=== PATIENT | male | born 1960 | race Caucasian/White ===

== ENCOUNTER 2017-06-02 19:17 | Emergency (ER) | payer MEDICAID ==
[~2017-06-02] VITALS: Ht 157.5 cm; Wt 115.0 kg
[~2017-06-02 19:17] MED LIST: ALLO100T30 PO; DOCU-131 PO; DOXY100T PO; FLUT1DIS3 INH; FURO20TA3 PO; HYDR-3237 PO; INDO50CA PO; Lorazepam PO; MULT-750 PO; OMEP-110 PO; RIVA15TA PO; RIVA20TA PO; TEMA15CA6 PO; ZIPR20CA2 PO
[2017-06-02] MEDS ORDERED: methylPREDNISolone SOD SUCC 125 MG/2 ML IVP ONE (20:00)
[2017-06-02] MEDS ORDERED: ALBUTEROL/IPRATROPIUM 2.5MG/0.5MG, 3 ML NPPB ONE (20:00)
[2017-06-02] MEDS ORDERED: SODIUM CHLORIDE FLUSH 10ML SYR IVF ONE (20:00)
[2017-06-02 20:10] LABS: HEMATOCRIT 43.7 % (39.2-51.8)
[2017-06-02] MEDS ORDERED: methylPREDNISolone SOD SUCC 125 MG/2 ML ONE (20:15)
[2017-06-02] MEDS ORDERED: ALBUTEROL/IPRATROPIUM 2.5MG/0.5MG, 3 ML ONE (20:20)
[2017-06-02 20:21] LABS: BLOOD UREA NITROGEN 11 mg/dL (7-18)
[2017-06-02] MEDS ORDERED: OMNIPAQUE 350 MG/ML, 100ML BOTTLE ONE (20:57)
[2017-06-02] MEDS ORDERED: IBUPROFEN 200 MG TABLET ONE (21:23)
[2017-06-02] MEDS ORDERED: TAMSULOSIN 0.4 MG CAP.ER.24H ONE (21:33)
[2017-06-02 21:42] VITALS: BP 142/94
[2017-06-02] MEDS ORDERED: TAMSULOSIN 0.4 MG CAP.ER.24H PO ONE (22:00)
== END 2017-06-02 22:27 | disposition home or self-care (01) ==
LOC: ED 22:15
DX: N40.1 Benign prostatic hyperplasia with lower urinary tract symptoms (principal); J98.01 Acute bronchospasm; F10.20 Alcohol dependence, uncomplicated; F20.9 Schizophrenia, unspecified; F32.9 Major depressive disorder, single episode, unspecified; K21.9 Gastro-esophageal reflux disease without esophagitis; M10.9 Gout, unspecified; Z86.711 Personal history of pulmonary embolism; Z99.81 Dependence on supplemental oxygen
CPT/HCPCS: 36415; 51702; 71275; 80048; 81003; 82040; 85025; 85610; 85730; 94640; 96374; 99285; J2930; Q9967; J7620

== ENCOUNTER 2017-06-06 12:29 | Inpatient (IN) | payer MEDICAID ==
[~2017-06-06] VITALS: Ht 185.4 cm; Wt 114.1 kg
[2017-06-06] MEDS ORDERED: SODIUM CHLORIDE 0.9% 1,000 ML IV ONE (13:01)
[2017-06-06] MEDS ORDERED: methylPREDNISolone SOD SUCC 125 MG/2 ML ONE (13:12)
[2017-06-06] MEDS ORDERED: methylPREDNISolone SOD SUCC 125 MG/2 ML IVP ONE (13:30)
[2017-06-06] MEDS ORDERED: AZITHROMYCIN 500 MG in SODIUM CHLORIDE 0.9% 250 ML IVPB ONE (13:30)
[2017-06-06] MEDS ORDERED: CEFTRIAXONE PMX 1GM/50ML 50 ML IVPB ONE (13:30)
[2017-06-06] MEDS ORDERED: SODIUM CHLORIDE FLUSH 10ML SYR IVF ONE (13:30)
[2017-06-06 13:43] LABS: HEMATOCRIT 49.6 % (39.2-51.8); HEMOGLOBIN 16.7 g/dL (13.7-18.0); WHITE BLOOD COUNT 6.2 x10^3/uL (3.4-10)
[2017-06-06 13:54] LABS: ASPARTATE AMINO TRANSFERASE 28 U/L (15-37); BLOOD UREA NITROGEN 13 mg/dL (7-18)
[2017-06-06 14:03] LABS: IS PT STATUS REG ER OR PRE ER? YES
[2017-06-06] MEDS ORDERED: CEFTRIAXONE PMX 1GM/50ML 50 ML ONE (14:18)
[2017-06-06] MEDS ORDERED: ONDANSETRON 2MG/ML, 2ML ONE (14:18)
[2017-06-06] MEDS ORDERED: LORazepam 2 MG/ML, 1ML ONE (14:25)
[2017-06-06] MEDS ORDERED: LORazepam 2 MG/ML, 1ML IVPush ONE (14:30)
[2017-06-06] MEDS ORDERED: ONDANSETRON 2MG/ML, 2ML IVPush ONE (14:30)
[2017-06-06 15:31] VITALS: BP 119/76
[2017-06-06] MEDS: CEFTRIAXONE PMX 1GM/50ML 50 ML IV SCH (15:56)
[2017-06-06] MEDS ORDERED: ONDANSETRON 2MG/ML, 2ML IVPush PRN (16:00)
[2017-06-06] MEDS ORDERED: ACETAMINOPHEN 325 MG TABLET PO PRN (16:00)
[2017-06-06] MEDS ORDERED: DOCUSATE 100 MG CAPSULE PO PRN (16:00)
[2017-06-06] MEDS ORDERED: NITROGLYCERIN 0.4 MG BOTTLE (25 TABS) SL PRN (16:00)
[2017-06-06] MEDS ORDERED: ONDANSETRON ODT 4 MG PO PRN (16:00)
[2017-06-06] MEDS: BENZONATATE 100 MG CAPSULE PO SCH ×2 (17:55→20:12)
[2017-06-06] MEDS: GUAIFENESIN 200 MG TABLET PO SCH ×2 (17:55→20:12)
[2017-06-06] MEDS: methylPREDNISolone SOD SUCC 125 MG/2 ML IVPush SCH (17:55)
[2017-06-06 18:59] LABS: RAPID INFLUENZA A Negative (Negative); RAPID INFLUENZA B Negative (Negative)
[2017-06-06 19:41] VITALS: BP 113/72
[2017-06-06] MEDS ORDERED: ALBUTEROL/IPRATROPIUM 2.5MG/0.5MG, 3 ML NPPB SCH (20:00)
[2017-06-06] MEDS: DOXYCYCLINE 100 MG in DEXTROSE 5% 250 ML IV SCH (20:13)
[2017-06-06 20:29] LABS: IS PT STATUS REG ER OR PRE ER? NO
[2017-06-07] MEDS: methylPREDNISolone SOD SUCC 125 MG/2 ML IVPush SCH ×4 (00:52→23:54)
[2017-06-07 02:00] VITALS: BP 110/73
[2017-06-07] MEDS: GUAIFENESIN 200 MG TABLET PO SCH ×4 (05:29→20:13)
[2017-06-07] MEDS: ASPIRIN 81 MG TABLET EC PO SCH (05:29)
[2017-06-07] MEDS: RIVAROXABAN 20 MG TABLET PO SCH (05:29)
[2017-06-07 05:55] LABS: BLOOD UREA NITROGEN 13 mg/dL (7-18)
[2017-06-07 05:56] LABS: HEMATOCRIT 42.3 % (39.2-51.8); HEMOGLOBIN 14.6 g/dL (13.7-18.0); WHITE BLOOD COUNT 8.5 x10^3/uL (3.4-10)
[2017-06-07] MEDS ORDERED: ASPIRIN 81 MG TABLET EC PO SCH (06:00)
[2017-06-07 06:30] VITALS: BP 116/63
[2017-06-07] MEDS: BENZONATATE 100 MG CAPSULE PO SCH ×3 (08:57→20:13)
[2017-06-07] MEDS: DOXYCYCLINE 100 MG in DEXTROSE 5% 250 ML IV SCH ×2 (08:57→20:14)
[2017-06-07] MEDS: ALLOPURINOL 300 MG TABLET PO SCH (08:57)
[2017-06-07 11:58] VITALS: BP 141/76
[2017-06-07 14:39] VITALS: BP 120/73
[2017-06-07] MEDS: CEFTRIAXONE PMX 1GM/50ML 50 ML IV SCH (15:31)
[2017-06-07] MEDS: THIAMINE 100MG TABLET PO SCH (17:48)
[2017-06-07 20:00] VITALS: BP 141/76
[2017-06-07] MEDS ORDERED: ACETAMINOPHEN 325 MG TABLET PO PRN (20:00)
[2017-06-07] MEDS ORDERED: DOCUSATE 100 MG CAPSULE PO PRN (20:00)
[2017-06-07] MEDS ORDERED: ONDANSETRON ODT 4 MG PO PRN (20:00)
[2017-06-07] MEDS ORDERED: ONDANSETRON 2MG/ML, 2ML IVPush PRN (20:00)
[2017-06-07] MEDS ORDERED: ALBUTEROL/IPRATROPIUM 2.5MG/0.5MG, 3 ML NPPB PRN (20:00)
[2017-06-08 04:37] VITALS: BP 112/63
[2017-06-08] MEDS: GUAIFENESIN 200 MG TABLET PO SCH ×4 (05:25→20:19)
[2017-06-08] MEDS: ASPIRIN 81 MG TABLET EC PO SCH (05:25)
[2017-06-08] MEDS: RIVAROXABAN 20 MG TABLET PO SCH (05:25)
[2017-06-08 05:58] LABS: HEMATOCRIT 42.6 % (39.2-51.8); HEMOGLOBIN 14.8 g/dL (13.7-18.0); WHITE BLOOD COUNT 11.7 x10^3/uL (3.4-10)
[2017-06-08 06:10] LABS: ASPARTATE AMINO TRANSFERASE 16 U/L (15-37); BLOOD UREA NITROGEN 16 mg/dL (7-18)
[2017-06-08 08:19] VITALS: BP 120/72
[2017-06-08] MEDS ORDERED: FOLIC ACID 1 MG TABLET PO SCH (09:00)
[2017-06-08] MEDS: methylPREDNISolone SOD SUCC 125 MG/2 ML IVPush SCH ×2 (09:32→16:22)
[2017-06-08] MEDS: THIAMINE 100MG TABLET PO SCH (09:32)
[2017-06-08] MEDS: FOLIC ACID 1 MG TABLET PO SCH (09:32)
[2017-06-08] MEDS: DOXYCYCLINE 100 MG in DEXTROSE 5% 250 ML IV SCH ×2 (09:32→20:19)
[2017-06-08] MEDS: BENZONATATE 100 MG CAPSULE PO SCH ×3 (09:32→20:20)
[2017-06-08] MEDS: ALLOPURINOL 300 MG TABLET PO SCH (09:32)
[2017-06-08 14:17] VITALS: BP 125/86
[2017-06-08] MEDS ORDERED: ALBUTEROL/IPRATROPIUM 2.5MG/0.5MG, 3 ML NPPB PRN (15:00)
[2017-06-08] MEDS: CEFTRIAXONE PMX 1GM/50ML 50 ML IV SCH (16:22)
[2017-06-08] MEDS ORDERED: ALBUTEROL/IPRATROPIUM 2.5MG/0.5MG, 3 ML ONE (19:39)
[2017-06-08 19:41] VITALS: BP 132/76
[2017-06-08] MEDS: ALBUTEROL/IPRATROPIUM 2.5MG/0.5MG, 3 ML NPPB SCH (19:48)
[2017-06-09] MEDS: methylPREDNISolone SOD SUCC 125 MG/2 ML IVPush SCH ×2 (00:05→08:59)
[2017-06-09 02:59] VITALS: BP 128/72
[2017-06-09] MEDS: GUAIFENESIN 200 MG TABLET PO SCH ×3 (05:02→16:16)
[2017-06-09] MEDS: RIVAROXABAN 20 MG TABLET PO SCH (05:02)
[2017-06-09] MEDS: ASPIRIN 81 MG TABLET EC PO SCH (05:02)
[2017-06-09 06:20] VITALS: BP 126/77
[2017-06-09 08:56] LABS: HEMATOCRIT 43.2 % (39.2-51.8); HEMOGLOBIN 14.7 g/dL (13.7-18.0); WHITE BLOOD COUNT 11.6 x10^3/uL (3.4-10)
[2017-06-09] MEDS: ALLOPURINOL 300 MG TABLET PO SCH (08:58)
[2017-06-09] MEDS: FOLIC ACID 1 MG TABLET PO SCH (08:58)
[2017-06-09] MEDS: THIAMINE 100MG TABLET PO SCH (08:58)
[2017-06-09] MEDS: BENZONATATE 100 MG CAPSULE PO SCH ×2 (08:58→16:16)
[2017-06-09] MEDS: ALBUTEROL/IPRATROPIUM 2.5MG/0.5MG, 3 ML NPPB SCH (09:00)
[2017-06-09] MEDS ORDERED: CEFDINIR 300 MG CAPSULE PO SCH (09:00)
[2017-06-09] MEDS ORDERED: DOXYCYCLINE 100MG TABLET PO SCH (09:00)
[2017-06-09 09:08] LABS: BLOOD UREA NITROGEN 14 mg/dL (7-18)
[2017-06-09 13:18] VITALS: BP 126/63
[2017-06-09] MEDS ORDERED: BENZ-17 PO (15:23)
[2017-06-09] MEDS ORDERED: PRED20TA PO (15:23)
[2017-06-09] MEDS ORDERED: DOXY100T PO (15:23)
== END 2017-06-09 18:45 | disposition home or self-care (01) | DRG 189 ==
LOC: ED 14:10 → EDIP 14:11 → ED 14:34 → 4NOR 15:13 → 4WST 17:38
PROVIDERS: ADMIT Internal Medicine; ATTEND Internal Medicine
DX: J96.20 Acute and chronic respiratory failure, unspecified whether with hypoxia or hypercapnia (principal); E87.2 Acidosis; I50.32 Chronic diastolic (congestive) heart failure; R45.851 Suicidal ideations; J44.1 Chronic obstructive pulmonary disease with (acute) exacerbation; J98.11 Atelectasis; K76.0 Fatty (change of) liver, not elsewhere classified; G47.33 Obstructive sleep apnea (adult) (pediatric); K21.9 Gastro-esophageal reflux disease without esophagitis; F32.9 Major depressive disorder, single episode, unspecified; F41.9 Anxiety disorder, unspecified; Z66 Do not resuscitate; M1A.9XX0 Chronic gout, unspecified, without tophus (tophi); F20.9 Schizophrenia, unspecified; F17.200 Nicotine dependence, unspecified, uncomplicated; Z91.14 Patient's other noncompliance with medication regimen; Z99.81 Dependence on supplemental oxygen; Z86.711 Personal history of pulmonary embolism; Z86.718 Personal history of other venous thrombosis and embolism; Z79.01 Long term (current) use of anticoagulants
CPT/HCPCS: 36415; 71010; 80048; 80053; 81003; 82550; 83605; 83735; 83880; 84145; 84443; 84484; 85025; 85610; 87040; 87400; 93005; 93306; 94640; 96365; 96367; 96375; J0456; J0696; J2405; J7060; J7620; J2930; J7030; J7050

== ENCOUNTER 2017-07-29 18:27 | Observation (INO) | payer MEDICAID ==
[~2017-07-29] VITALS: Ht 157.5 cm; Wt 107.0 kg
[~2017-07-29 18:27] MED LIST changes: +BENZ-17 PO; +PRED20TA PO
[2017-07-29 18:57] LABS: BASOPHILS # (AUTO) 0.04 x10^3/uL (0-0.1); BASOPHILS % (AUTO) 1 % (0-1); EOSINOPHILS # (AUTO) 0.09 x10^3/uL (0-0.4); EOSINOPHILS % (AUTO) 1 % (1-7); LYMPHOCYTES # (AUTO) 1.93 x10^3/uL (1-3.4); LYMPHOCYTES % (AUTO) 25 % (22-44); MD NO; MEAN CORPUSCULAR HEMOGLOBIN 30.7 pg (27.5-34.5); MEAN CORPUSCULAR HGB CONC 33.8 g/dL (33.2-36.2); MEAN CORPUSCULAR VOLUME 90.8 fL (81-97); MEAN PLATELET VOLUME 7.8 fL (7.4-10.4); MONOCYTES # (AUTO) 0.59 x10^3/uL (0.2-0.8); MONOCYTES % (AUTO) 8 % (2-9); NEUTROPHILS # (AUTO) 5.09 x10^3/uL (1.8-6.8); NEUTROPHILS % (AUTO) 66 % (42-75); PLATELET COUNT 253 x10^3/uL (130-400); RED CELL DISTRIBUTION WIDTH 14.4 % (9.4-14.8)
[2017-07-29 19:08] LABS: ALANINE AMINOTRANSFERASE 25 U/L (12-78); ALBUMIN 3.8 g/dL (3.4-5.0); ANION GAP 9 mmol/L (5-15); CALCIUM 9.1 mg/dL (8.5-10.1); CHLORIDE 109 mmol/L (98-107); CREATININE 0.97 mg/dL (0.7-1.3)
[2017-07-29 19:09] LABS: SALICYLATE LEVEL < 1.7 mg/dL (2.8-20.0)
[2017-07-29 19:11] LABS: ALKALINE PHOSPHATASE 92 U/L (45-117); BILIRUBIN,TOTAL 1.7 mg/dL (0.2-1.0); TOTAL PROTEIN 7.6 g/dL (6.4-8.2)
[2017-07-29 19:13] LABS: ACETAMINOPHEN < 2 mcg/mL (10-30)
[2017-07-29] MEDS ORDERED: ZIPR40CA2 PO (19:22)
[2017-07-29 19:31] LABS: CULTURE INDICATED? YES; MICROSCOPIC INDICATED
[2017-07-29 20:25] LABS: AMPHETAMINE SCREEN, URINE Negative (Negative); BARBITURATE SCREEN, URINE Negative (Negative); BENZODIAZEPINE SCREEN, URINE Negative (Negative); CANNABINOID SCREEN, URINE Negative (Negative); COCAINE SCREEN, URINE Negative (Negative); METHADONE SCREEN, URINE Negative (Negative); OPIATE SCREEN, URINE Negative (Negative)
[2017-07-29] MEDS ORDERED: ZIPRASIDONE 20MG CAPSULE ONE (21:53)
[2017-07-29] MEDS: ZIPRASIDONE 40MG CAPSULE PO SCH (21:57)
[2017-07-30] MEDS: RIVAROXABAN 20 MG TABLET PO SCH (09:00)
[2017-07-30] MEDS: BENZTROPINE 1 MG TABLET PO PRN ×2 (09:00→20:29)
[2017-07-30] MEDS: ZIPRASIDONE 40MG CAPSULE PO SCH ×2 (09:00→20:28)
[2017-07-30] MEDS ORDERED: INDOMETHACIN 50 MG CAPSULE ONE ×2 (10:47→20:30)
[2017-07-30] MEDS ORDERED: ACETAMINOPHEN 325 MG TABLET ONE ×2 (10:49→20:29)
[2017-07-30] MEDS ORDERED: ZIPRASIDONE 20MG CAPSULE ONE (20:16)
[2017-07-30] MEDS: INDOMETHACIN 50 MG CAPSULE PO PRN (20:29)
[2017-07-30] MEDS: ACETAMINOPHEN 325 MG TABLET PO PRN (20:29)
[2017-07-31] MEDS: INDOMETHACIN 50 MG CAPSULE PO PRN (09:00)
[2017-07-31] MEDS: ZIPRASIDONE 40MG CAPSULE PO SCH ×2 (09:00→20:54)
[2017-07-31] MEDS: RIVAROXABAN 20 MG TABLET PO SCH (09:00)
[2017-07-31] MEDS ORDERED: ACETAMINOPHEN 325 MG TABLET ONE (09:40)
[2017-07-31] MEDS: ACETAMINOPHEN 325 MG TABLET PO PRN (09:45)
[2017-07-31 19:18] VITALS: BP 135/94
[2017-08-01] MEDS: INDOMETHACIN 50 MG CAPSULE PO PRN ×2 (08:12→21:02)
[2017-08-01] MEDS: RIVAROXABAN 20 MG TABLET PO SCH (08:13)
[2017-08-01] MEDS: ZIPRASIDONE 40MG CAPSULE PO SCH ×2 (08:13→21:00)
[2017-08-01 08:15] VITALS: BP 139/99
[2017-08-01 20:10] VITALS: BP 135/87
[2017-08-02] MEDS: ZIPRASIDONE 40MG CAPSULE PO SCH ×2 (08:35→20:38)
[2017-08-02] MEDS: RIVAROXABAN 20 MG TABLET PO SCH (08:35)
[2017-08-02] MEDS: INDOMETHACIN 50 MG CAPSULE PO PRN ×2 (08:35→20:38)
[2017-08-02 08:42] VITALS: BP 138/88
[2017-08-02] MEDS: DIPHENHYDRAMINE 25 MG CAPSULE PO PRN ×2 (15:32→20:38)
[2017-08-02] MEDS ORDERED: ZIPRASIDONE 40MG CAPSULE ONE (19:10)
[2017-08-02 20:01] VITALS: BP 128/87
[2017-08-03 08:10] VITALS: BP 143/92
[2017-08-03] MEDS: ZIPRASIDONE 40MG CAPSULE PO SCH ×2 (08:27→20:00)
[2017-08-03] MEDS: RIVAROXABAN 20 MG TABLET PO SCH (08:27)
[2017-08-03] MEDS: DIPHENHYDRAMINE 25 MG CAPSULE PO PRN ×2 (10:12→15:13)
[2017-08-03 19:52] VITALS: BP 133/91
[2017-08-03] MEDS: INDOMETHACIN 50 MG CAPSULE PO PRN (20:00)
[2017-08-04 07:51] VITALS: BP 133/87
[2017-08-04] MEDS: ZIPRASIDONE 40MG CAPSULE PO SCH ×2 (09:13→20:23)
[2017-08-04] MEDS: RIVAROXABAN 20 MG TABLET PO SCH (09:35)
[2017-08-04 19:27] VITALS: BP 155/79
[2017-08-04] MEDS: DIPHENHYDRAMINE 25 MG CAPSULE PO PRN (22:04)
[2017-08-05] MEDS: ZIPRASIDONE 40MG CAPSULE PO SCH ×2 (08:04→21:24)
[2017-08-05] MEDS: RIVAROXABAN 20 MG TABLET PO SCH (08:04)
[2017-08-05 08:08] VITALS: BP 130/90
[2017-08-05 20:00] VITALS: BP 121/82
[2017-08-05] MEDS: DIPHENHYDRAMINE 25 MG CAPSULE PO PRN (21:24)
[2017-08-06 08:12] VITALS: BP 129/87
[2017-08-06] MEDS: RIVAROXABAN 20 MG TABLET PO SCH (08:31)
[2017-08-06] MEDS: INDOMETHACIN 50 MG CAPSULE PO PRN (08:31)
[2017-08-06] MEDS: ZIPRASIDONE 40MG CAPSULE PO SCH ×2 (08:31→20:39)
[2017-08-06] MEDS: DIPHENHYDRAMINE 25 MG CAPSULE PO PRN ×2 (08:31→20:39)
[2017-08-06 19:38] VITALS: BP 124/86
[2017-08-07] MEDS: ZIPRASIDONE 40MG CAPSULE PO SCH (08:08)
[2017-08-07] MEDS: INDOMETHACIN 50 MG CAPSULE PO PRN (08:08)
[2017-08-07] MEDS: RIVAROXABAN 20 MG TABLET PO SCH (08:08)
[2017-08-07] MEDS: ACETAMINOPHEN 325 MG TABLET PO PRN (08:08)
[2017-08-07] MEDS: DIPHENHYDRAMINE 25 MG CAPSULE PO PRN (08:08)
[2017-08-07 08:20] VITALS: BP 131/75
== END 2017-08-07 18:22 | disposition home or self-care (01) ==
LOC: ED 18:51 → EDIP 07-30 01:43 → 2N 07-31 17:19
PROVIDERS: ADMIT Internal Medicine; ATTEND Family Medicine
DX: R45.851 Suicidal ideations (principal); F10.10 Alcohol abuse, uncomplicated; M10.9 Gout, unspecified; R44.0 Auditory hallucinations; F15.90 Other stimulant use, unspecified, uncomplicated; F25.9 Schizoaffective disorder, unspecified; K21.9 Gastro-esophageal reflux disease without esophagitis; F31.9 Bipolar disorder, unspecified; Z99.81 Dependence on supplemental oxygen; Z86.718 Personal history of other venous thrombosis and embolism
CPT/HCPCS: 36415; 80053; 80307; 80329; 81001; 85025; 87086; 99285; G0378; Q0163; G0480

== ENCOUNTER 2017-09-15 08:03 | Emergency (ER) | payer MEDICAID ==
[~2017-09-15] VITALS: Ht 160 cm; Wt 109.1 kg
[~2017-09-15 08:03] MED LIST changes: +ZIPR40CA2 PO
[2017-09-15 09:46] LABS: BASOPHILS # (AUTO) 0.03 x10^3/uL (0-0.1); BASOPHILS % (AUTO) 1 % (0-1); EOSINOPHILS # (AUTO) 0.37 x10^3/uL (0-0.4); EOSINOPHILS % (AUTO) 6 % (1-7); LYMPHOCYTES # (AUTO) 1.77 x10^3/uL (1-3.4); LYMPHOCYTES % (AUTO) 28 % (22-44); MD NO; MEAN CORPUSCULAR HEMOGLOBIN 31.2 pg (27.5-34.5); MEAN CORPUSCULAR HGB CONC 34.5 g/dL (33.2-36.2); MEAN CORPUSCULAR VOLUME 90.6 fL (81-97); MEAN PLATELET VOLUME 8.3 fL (7.4-10.4); MONOCYTES # (AUTO) 0.87 x10^3/uL (0.2-0.8); MONOCYTES % (AUTO) 14 % (2-9); NEUTROPHILS # (AUTO) 3.32 x10^3/uL (1.8-6.8); NEUTROPHILS % (AUTO) 52 % (42-75); PLATELET COUNT 214 x10^3/uL (130-400); RED BLOOD COUNT 5.07 x10^6/uL (4.38-5.82); RED CELL DISTRIBUTION WIDTH 14.1 % (9.4-14.8)
[2017-09-15 09:49] LABS: INTERNATIONAL NORMALIZED RATIO 1.04 (0.93-1.1); PROTHROMBIN TIME 10.8 Seconds (9.6-11.5)
[2017-09-15 09:50] LABS: ALBUMIN 3.7 g/dL (3.4-5.0); ANION GAP 6 mmol/L (5-15); CALCIUM 8.7 mg/dL (8.5-10.1); CHLORIDE 109 mmol/L (98-107)
[2017-09-15 09:56] LABS: CREATININE 0.82 mg/dL (0.7-1.3); TROPONIN I < 0.015 ng/mL (0.000-0.045)
[2017-09-15] MEDS ORDERED: OMNIPAQUE 350 MG/ML, 100ML BOTTLE ONE (11:09)
[2017-09-15 11:48] VITALS: BP 106/73
== END 2017-09-15 12:03 | disposition home or self-care (01) ==
LOC: ED 09:43
DX: R60.0 Localized edema (principal); M79.605 Pain in left leg; M79.89 Other specified soft tissue disorders; J44.9 Chronic obstructive pulmonary disease, unspecified; I10 Essential (primary) hypertension; K21.9 Gastro-esophageal reflux disease without esophagitis
CPT/HCPCS: 36415; 71046; 71275; 80048; 82040; 83880; 84484; 85025; 85610; 85730; 93005; 93970; 99285; Q9967

== ENCOUNTER 2017-11-07 12:53 | Emergency (ER) | payer MEDICAID ==
[~2017-11-07] VITALS: Ht 157.5 cm; Wt 107.4 kg
[2017-11-07 15:17] LABS: BASOPHILS # (AUTO) 0.09 x10^3/uL (0-0.1); BASOPHILS % (AUTO) 1 % (0-1); EOSINOPHILS # (AUTO) 0.34 x10^3/uL (0-0.4); EOSINOPHILS % (AUTO) 6 % (1-7); LYMPHOCYTES % (AUTO) 31 % (22-44); MD NO; MEAN CORPUSCULAR HGB CONC 34.2 g/dL (33.2-36.2); MEAN CORPUSCULAR VOLUME 87.7 fL (81-97); MEAN PLATELET VOLUME 7.9 fL (7.4-10.4); MONOCYTES # (AUTO) 0.62 x10^3/uL (0.2-0.8); MONOCYTES % (AUTO) 10 % (2-9); NEUTROPHILS # (AUTO) 3.12 x10^3/uL (1.8-6.8); NEUTROPHILS % (AUTO) 52 % (42-75); PLATELET COUNT 220 x10^3/uL (130-400); RED BLOOD COUNT 4.97 x10^6/uL (4.38-5.82); RED CELL DISTRIBUTION WIDTH 13.8 % (9.4-14.8)
[2017-11-07 15:30] LABS: ALANINE AMINOTRANSFERASE 20 U/L (12-78); ALBUMIN 3.5 g/dL (3.4-5.0); ANION GAP 6 mmol/L (5-15); CALCIUM 8.8 mg/dL (8.5-10.1); CHLORIDE 110 mmol/L (98-107); CREATININE 0.95 mg/dL (0.7-1.3)
[2017-11-07] MEDS ORDERED: KETOROLAC 30 MG/1 ML IM ONE (15:30)
[2017-11-07 15:34] LABS: ALKALINE PHOSPHATASE 72 U/L (45-117); BILIRUBIN,TOTAL 0.6 mg/dL (0.2-1.0); TOTAL PROTEIN 6.8 g/dL (6.4-8.2)
[2017-11-07] MEDS ORDERED: KETOROLAC 30 MG/1 ML ONE (15:35)
[2017-11-07] MEDS ORDERED: FURO-93 PO (15:40)
[2017-11-07] MEDS ORDERED: GABA100C PO (15:40)
[2017-11-07 16:36] VITALS: BP 112/73
== END 2017-11-07 16:51 | disposition home or self-care (01) ==
LOC: ED 16:30
DX: L03.115 Cellulitis of right lower limb (principal); J44.9 Chronic obstructive pulmonary disease, unspecified; K21.9 Gastro-esophageal reflux disease without esophagitis; I10 Essential (primary) hypertension; F10.20 Alcohol dependence, uncomplicated; Z86.718 Personal history of other venous thrombosis and embolism; Z86.711 Personal history of pulmonary embolism; Z59.0 Homelessness
CPT/HCPCS: 36415; 71045; 80053; 83880; 85025; 93005; 93971; 96372; 99285; J1885

== ENCOUNTER 2017-12-01 19:16 | Emergency (ER) | payer MEDICAID ==
[~2017-12-01] VITALS: Ht 160 cm; Wt 106.1 kg
[~2017-12-01 19:16] MED LIST changes: +FURO-93 PO; +GABA100C PO
[2017-12-01] MEDS ORDERED: INDO50CA PO (19:44)
[2017-12-01] MEDS ORDERED: HYDROcodone/APAP 5/325 TABLET ONE (19:45)
[2017-12-01] MEDS ORDERED: HYDROcodone/APAP 5/325 TABLET PO ONE (20:00)
[2017-12-01 20:02] LABS: BASOPHILS # (AUTO) 0.06 x10^3/uL (0-0.1); BASOPHILS % (AUTO) 1 % (0-1); EOSINOPHILS # (AUTO) 0.33 x10^3/uL (0-0.4); EOSINOPHILS % (AUTO) 4 % (1-7); LYMPHOCYTES # (AUTO) 2.23 x10^3/uL (1-3.4); LYMPHOCYTES % (AUTO) 30 % (22-44); MD NO; MEAN CORPUSCULAR HEMOGLOBIN 30.3 pg (27.5-34.5); MEAN CORPUSCULAR HGB CONC 34.4 g/dL (33.2-36.2); MEAN CORPUSCULAR VOLUME 88.1 fL (81-97); MEAN PLATELET VOLUME 8.4 fL (7.4-10.4); MONOCYTES # (AUTO) 0.78 x10^3/uL (0.2-0.8); MONOCYTES % (AUTO) 10 % (2-9); NEUTROPHILS # (AUTO) 4.13 x10^3/uL (1.8-6.8); NEUTROPHILS % (AUTO) 55 % (42-75); PLATELET COUNT 209 x10^3/uL (130-400); RED BLOOD COUNT 5.15 x10^6/uL (4.38-5.82); RED CELL DISTRIBUTION WIDTH 14.1 % (9.4-14.8)
[2017-12-01 20:12] LABS: ALBUMIN 3.9 g/dL (3.4-5.0); ANION GAP 10 mmol/L (5-15); CALCIUM 9.1 mg/dL (8.5-10.1); CHLORIDE 110 mmol/L (98-107); CREATININE 1.04 mg/dL (0.7-1.3)
[2017-12-01 20:15] LABS: TROPONIN I < 0.015 ng/mL (0.000-0.045)
[2017-12-01 21:47] VITALS: BP 117/72
== END 2017-12-01 22:01 | disposition home or self-care (01) ==
LOC: ED 21:38
DX: R60.0 Localized edema (principal); I10 Essential (primary) hypertension; J44.9 Chronic obstructive pulmonary disease, unspecified; N40.0 Benign prostatic hyperplasia without lower urinary tract symptoms; F31.9 Bipolar disorder, unspecified; F20.9 Schizophrenia, unspecified; K21.9 Gastro-esophageal reflux disease without esophagitis; Z86.718 Personal history of other venous thrombosis and embolism; Z99.81 Dependence on supplemental oxygen; Z86.711 Personal history of pulmonary embolism; Z79.01 Long term (current) use of anticoagulants
CPT/HCPCS: 36415; 71045; 80048; 82040; 84484; 85025; 93005; 93970; 99285

== ENCOUNTER 2017-12-12 17:12 | Emergency (ER) | payer MEDICAID ==
[~2017-12-12] VITALS: Ht 157.5 cm; Wt 104.0 kg
[2017-12-12 21:54] VITALS: BP 116/71
== END 2017-12-12 22:37 | disposition home or self-care (01) ==
LOC: ED 20:40
DX: F10.120 Alcohol abuse with intoxication, uncomplicated (principal); J44.9 Chronic obstructive pulmonary disease, unspecified; K21.9 Gastro-esophageal reflux disease without esophagitis; Z86.718 Personal history of other venous thrombosis and embolism; I10 Essential (primary) hypertension
CPT/HCPCS: 99283

== ENCOUNTER 2018-01-18 16:08 | Emergency (ER) | payer MEDICAID ==
[~2018-01-18] VITALS: Ht 165.1 cm; Wt 101.0 kg
[2018-01-18 16:17] VITALS: BP 121/83
[2018-01-18] MEDS ORDERED: NAPROXEN 500 MG TABLET PO ONE (17:00)
[2018-01-18] MEDS ORDERED: NAPROXEN 500 MG TABLET ONE (17:14)
[2018-01-18] MEDS ORDERED: ACETAMINOPHEN 500 MG TABLET PO ONE (19:00)
[2018-01-18] MEDS ORDERED: ACETAMINOPHEN 500 MG TABLET ONE (19:16)
== END 2018-01-18 19:27 | disposition home or self-care (01) ==
LOC: ED 17:49
DX: M79.662 Pain in left lower leg (principal); M79.652 Pain in left thigh; R60.9 Edema, unspecified; I10 Essential (primary) hypertension; J44.9 Chronic obstructive pulmonary disease, unspecified; M10.9 Gout, unspecified
CPT/HCPCS: 99284

== ENCOUNTER 2018-04-15 14:10 | Emergency (ER) | payer MEDICAID ==
[~2018-04-15] VITALS: Ht 160 cm; Wt 103.0 kg
[~2018-04-15 14:10] MED LIST changes: -INDO50CA PO; +INDO50CA5 PO
[2018-04-15] MEDS ORDERED: KETOROLAC 30 MG/1 ML ONE (14:38)
[2018-04-15] MEDS ORDERED: KETOROLAC 30 MG/1 ML IM ONE (15:00)
[2018-04-15 15:12] VITALS: BP 128/72
== END 2018-04-15 15:14 | disposition home or self-care (01) ==
LOC: ED 14:51
DX: M10.032 Idiopathic gout, left wrist (principal); I10 Essential (primary) hypertension; J44.9 Chronic obstructive pulmonary disease, unspecified; F31.9 Bipolar disorder, unspecified; K21.9 Gastro-esophageal reflux disease without esophagitis; Z86.718 Personal history of other venous thrombosis and embolism
CPT/HCPCS: 29125; 96372; 99283; J1885

== ENCOUNTER 2018-04-16 00:19 | Emergency (ER) | payer MEDICAID ==
[~2018-04-16] VITALS: Ht 165.1 cm; Wt 100.0 kg
[2018-04-16 00:23] VITALS: BP 138/80
[2018-04-16] MEDS ORDERED: ACETAMINOPHEN 325 MG TABLET ONE (00:38)
[2018-04-16] MEDS ORDERED: HYDROcodone/APAP 5/325 TABLET ONE (00:38)
[2018-04-16 00:47] LABS: BASOPHILS # (AUTO) 0.03 x10^3/uL (0-0.1); BASOPHILS % (AUTO) 0 % (0-1); EOSINOPHILS # (AUTO) 0.19 x10^3/uL (0-0.4); EOSINOPHILS % (AUTO) 3 % (1-7); LYMPHOCYTES # (AUTO) 1.67 x10^3/uL (1-3.4); LYMPHOCYTES % (AUTO) 22 % (22-44); MD NO; MEAN CORPUSCULAR HGB CONC 34.3 g/dL (33.2-36.2); MEAN CORPUSCULAR VOLUME 90.4 fL (81-97); MEAN PLATELET VOLUME 7.8 fL (7.4-10.4); MONOCYTES # (AUTO) 0.88 x10^3/uL (0.2-0.8); MONOCYTES % (AUTO) 11 % (2-9); NEUTROPHILS # (AUTO) 4.96 x10^3/uL (1.8-6.8); NEUTROPHILS % (AUTO) 64 % (42-75); PLATELET COUNT 198 x10^3/uL (130-400); RED BLOOD COUNT 4.62 x10^6/uL (4.38-5.82); RED CELL DISTRIBUTION WIDTH 13.8 % (9.4-14.8)
[2018-04-16 00:58] LABS: ANION GAP 8 mmol/L (5-15); CALCIUM 8.8 mg/dL (8.5-10.1); CHLORIDE 110 mmol/L (98-107); CREATININE 0.88 mg/dL (0.7-1.3)
[2018-04-16 00:59] LABS: ALBUMIN 3.6 g/dL (3.4-5.0)
[2018-04-16] MEDS ORDERED: ACETAMINOPHEN 325 MG TABLET PO ONE (01:00)
[2018-04-16] MEDS ORDERED: HYDROcodone/APAP 5/325 TABLET PO ONE (01:00)
[2018-04-16 01:14] LABS: MICROSCOPIC NOT IND
[2018-04-16 01:34] LABS: CULTURE INDICATED? NO
== END 2018-04-16 02:12 | disposition home or self-care (01) ==
LOC: ED 00:42
DX: B34.9 Viral infection, unspecified (principal); M79.10 Myalgia, unspecified site; I10 Essential (primary) hypertension; J44.9 Chronic obstructive pulmonary disease, unspecified; F31.9 Bipolar disorder, unspecified; F20.9 Schizophrenia, unspecified; Z86.718 Personal history of other venous thrombosis and embolism; K21.9 Gastro-esophageal reflux disease without esophagitis
CPT/HCPCS: 36415; 71045; 80048; 81003; 82040; 83605; 84145; 85025; 99285

== ENCOUNTER 2018-04-28 04:55 | Emergency (ER) | payer MEDICAID ==
[~2018-04-28] VITALS: Ht 162.6 cm; Wt 104.1 kg
[2018-04-28 04:56] VITALS: BP 146/82
[2018-04-28] MEDS ORDERED: KETOROLAC 30 MG/1 ML ONE (05:43)
[2018-04-28] MEDS ORDERED: IBUPROFEN 200 MG TABLET ONE (05:58)
[2018-04-28] MEDS ORDERED: KETOROLAC 30 MG/1 ML IM ONE (06:00)
[2018-04-28] MEDS ORDERED: IBUPROFEN 200 MG TABLET PO ONE (06:00)
== END 2018-04-28 06:49 | disposition home or self-care (01) ==
LOC: ED 06:23
DX: M1A.05 Idiopathic chronic gout, hip (principal); M1A.0510 Idiopathic chronic gout, right hip, without tophus (tophi); M1A.0620 Idiopathic chronic gout, left knee, without tophus (tophi); M1A.0610 Idiopathic chronic gout, right knee, without tophus (tophi); M1A.0720 Idiopathic chronic gout, left ankle and foot, without tophus (tophi); M1A.0710 Idiopathic chronic gout, right ankle and foot, without tophus (tophi); M1A.0320 Idiopathic chronic gout, left wrist, without tophus (tophi); I10 Essential (primary) hypertension; J44.9 Chronic obstructive pulmonary disease, unspecified; F32.9 Major depressive disorder, single episode, unspecified; Z86.718 Personal history of other venous thrombosis and embolism
CPT/HCPCS: 82962; 99283

== ENCOUNTER 2018-04-30 07:45 | Emergency (ER) | payer MEDICAID ==
[~2018-04-30] VITALS: Ht 175.3 cm; Wt 104.0 kg
[2018-04-30 08:15] VITALS: BP 127/72
[2018-04-30] MEDS ORDERED: KETOROLAC 30 MG/1 ML IM ONE (08:30)
[2018-04-30] MEDS ORDERED: PLEASE ENTER HEIGHT AND WEIGHT MC SCH (08:30)
[2018-04-30] MEDS ORDERED: KETOROLAC 30 MG/1 ML ONE (08:31)
== END 2018-04-30 10:20 | disposition home or self-care (01) ==
LOC: ED 09:10
DX: S63.512A Sprain of carpal joint of left wrist, initial encounter (principal); M10.062 Idiopathic gout, left knee
CPT/HCPCS: 29260; 73110; 93970; 96372; 99284; J1885

== ENCOUNTER 2018-05-17 07:48 | Emergency (ER) | payer MEDICAID ==
[~2018-05-17] VITALS: Ht 165.1 cm; Wt 102.4 kg
[2018-05-17 07:56] VITALS: BP 116/80
[2018-05-17] MEDS ORDERED: INDO50CA5 PO (08:02)
[2018-05-17] MEDS ORDERED: KETOROLAC 30 MG/1 ML ONE (08:15)
[2018-05-17] MEDS ORDERED: KETOROLAC 30 MG/1 ML IM ONE (08:30)
== END 2018-05-17 09:03 | disposition home or self-care (01) ==
LOC: ED 09:00
DX: M19.071 Primary osteoarthritis, right ankle and foot (principal); M10.9 Gout, unspecified; M19.032 Primary osteoarthritis, left wrist; K21.9 Gastro-esophageal reflux disease without esophagitis; J44.9 Chronic obstructive pulmonary disease, unspecified; I10 Essential (primary) hypertension
CPT/HCPCS: 96372; 99283; J1885

== ENCOUNTER 2018-06-07 05:09 | Emergency (ER) | payer MEDICAID ==
[~2018-06-07] VITALS: Ht 157.5 cm; Wt 102.4 kg
[2018-06-07 05:12] VITALS: BP 139/79
[2018-06-07] MEDS ORDERED: KETOROLAC 30 MG/1 ML ONE (05:56)
[2018-06-07] MEDS ORDERED: COLCHICINE 0.6 MG TABLET PO ONE (06:00)
[2018-06-07] MEDS ORDERED: KETOROLAC 30 MG/1 ML IM ONE (06:00)
[2018-06-07] MEDS ORDERED: DIPH,PERTUSS(ACELL),TET VAC/PF 0.5 ML IM-VACC ONE ×2 (06:23→06:30)
[2018-06-07] MEDS ORDERED: COLCHICINE 0.6 MG TABLET PO SCH (07:00)
== END 2018-06-07 06:52 | disposition home or self-care (01) ==
LOC: ED 05:18
DX: M10.071 Idiopathic gout, right ankle and foot (principal); I10 Essential (primary) hypertension; J44.9 Chronic obstructive pulmonary disease, unspecified; F17.200 Nicotine dependence, unspecified, uncomplicated
CPT/HCPCS: 90471; 90715; 96372; 99283; J1885

== ENCOUNTER 2018-08-08 14:31 | Emergency (ER) | payer MEDICAID ==
[~2018-08-08] VITALS: Ht 152.4 cm; Wt 109.1 kg
[2018-08-08 14:32] VITALS: BP 120/85
== END 2018-08-08 15:20 ==
LOC: ED 15:10
DX: L03.113 Cellulitis of right upper limb (principal); I10 Essential (primary) hypertension; J44.9 Chronic obstructive pulmonary disease, unspecified; F31.9 Bipolar disorder, unspecified; K21.9 Gastro-esophageal reflux disease without esophagitis; F20.9 Schizophrenia, unspecified; M10.9 Gout, unspecified; Z86.718 Personal history of other venous thrombosis and embolism
CPT/HCPCS: 99283

== ENCOUNTER 2018-09-02 06:52 | Emergency (ER) | payer MEDICAID ==
[~2018-09-02] VITALS: Ht 165.1 cm; Wt 107.4 kg
[2018-09-02] MEDS ORDERED: KETOROLAC 30 MG/1 ML IM ONE (08:00)
[2018-09-02] MEDS ORDERED: COLCHICINE 0.6 MG TABLET PO SCH (08:00)
[2018-09-02] MEDS ORDERED: KETOROLAC 30 MG/1 ML ONE (08:08)
--- NOTE | 2018-09-02 08:11 | NUR ---
TASK RN: MED REQUEST SENT TO PHARMACY
[2018-09-02] MEDS ORDERED: COLCHICINE 0.6 MG TABLET PO ONE (08:30)
[2018-09-02 08:38] VITALS: BP 120/76
--- NOTE | 2018-09-02 08:46 | NUR ---
Patient/Caregiver given discharge instructions and they have confirmed that they understand the instructions. Patient ambulatory with steady gait. PT LEFT WITH ALL PERSONAL BELONGINGS.
== END 2018-09-02 08:48 | disposition home or self-care (01) ==
LOC: ED 07:12
DX: M13.161 Monoarthritis, not elsewhere classified, right knee (principal); K21.9 Gastro-esophageal reflux disease without esophagitis; J44.9 Chronic obstructive pulmonary disease, unspecified; I10 Essential (primary) hypertension; Z86.718 Personal history of other venous thrombosis and embolism; F31.9 Bipolar disorder, unspecified
CPT/HCPCS: 96372; 99283; J1885

== ENCOUNTER 2018-09-16 07:21 | Emergency (ER) | payer MEDICAID ==
[~2018-09-16] VITALS: Ht 165.1 cm; Wt 107.2 kg
[2018-09-16] MEDS ORDERED: HYDROcodone/APAP 5/325 TABLET ONE (07:57)
--- NOTE | 2018-09-16 07:59 | NUR ---
PT TAKEN TO CT IN STABLE CONDITION.
[2018-09-16] MEDS ORDERED: HYDROcodone/APAP 5/325 TABLET PO ONE (08:00)
[2018-09-16] MEDS ORDERED: KETOROLAC 30 MG/1 ML ONE (08:41)
[2018-09-16] MEDS ORDERED: KETOROLAC 30 MG/1 ML IM ONE (09:00)
--- NOTE | 2018-09-16 09:02 | NUR ---
PT CHART REVIEWED AND PLACED FOR RECHECK.
[2018-09-16 09:07] VITALS: BP 116/75
--- NOTE | 2018-09-16 09:07 | NUR ---
PT CHART REVIEWED AND PLACED FOR RECHECK.
== END 2018-09-16 10:09 | disposition home or self-care (01) ==
LOC: ED 08:18
DX: S06.0X0A Concussion without loss of consciousness, initial encounter (principal); S00.83XA Contusion of other part of head, initial encounter; S50.12XA Contusion of left forearm, initial encounter; S50.11XA Contusion of right forearm, initial encounter; F20.9 Schizophrenia, unspecified; I10 Essential (primary) hypertension; Z76.0 Encounter for issue of repeat prescription; Z72.9 Problem related to lifestyle, unspecified; Y04.8XXA Assault by other bodily force, initial encounter; Y93.89 Activity, other specified; Y92.89 Other specified places as the place of occurrence of the external cause; Y99.8 Other external cause status; Z59.0 Homelessness
CPT/HCPCS: 70450; 70486; 71101; 96372; 99284; J1885

== ENCOUNTER 2018-09-16 15:27 | Emergency (ER) | payer MEDICAID ==
[~2018-09-16] VITALS: Ht 167.6 cm; Wt 111.0 kg
[2018-09-16 15:46] VITALS: BP 105/74
--- NOTE | 2018-09-16 18:52 | NUR ---
REPORT RECEIVED FROM Elsa RICCI, [facility]
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
--- NOTE | 2018-09-16 19:23 | NUR ---
PT MEASURED FOR CRUTCHES, INSTRUCTED ON USE, DEMONSTRATED USE BACK
--- NOTE | 2018-09-16 19:37 | NUR ---
Patient/Caregiver given discharge instructions and they have confirmed that they understand the instructions. Patient ambulatory with steady gait.
== END 2018-09-16 19:39 | disposition home or self-care (01) ==
LOC: ED 19:00
DX: S70.11XA Contusion of right thigh, initial encounter (principal); I10 Essential (primary) hypertension; M19.90 Unspecified osteoarthritis, unspecified site; J44.9 Chronic obstructive pulmonary disease, unspecified; F31.9 Bipolar disorder, unspecified; K21.9 Gastro-esophageal reflux disease without esophagitis; M10.9 Gout, unspecified; Z87.891 Personal history of nicotine dependence; Z86.718 Personal history of other venous thrombosis and embolism; Z99.81 Dependence on supplemental oxygen; Y08.89XA Assault by other specified means, initial encounter; Y93.89 Activity, other specified; Y92.89 Other specified places as the place of occurrence of the external cause; Y99.8 Other external cause status
CPT/HCPCS: 99283

== ENCOUNTER 2018-11-14 05:49 | Emergency (ER) | payer MEDICAID ==
[~2018-11-14] VITALS: Ht 165.1 cm; Wt 102.3 kg
--- NOTE | 2018-11-14 06:13 | NUR ---
FIRST CONTACT WITH PT. PT HERE STATING THAT HE IS HAVING A MAJOR GOUT ATTACK IN L LEG AND THAT HE HAD "MAJOR SURGERY" AT [facility] LAST MONTH AND HE NEEDS HIS LEFT LEG TO HELP SUPPORT HIMSELF WHILE WALKING. IS TAKING ALLOPURINOL 300MG AND STATES THAT BECAUSE OF THIS HIS DOCTOR DID NOT WANT HIM TO TAKE HIS XARELTO HOWEVER HE STATES THAT HE WANTS A REFILL. PT'S AOX4. RESPS EVEN AND UNLABORED. BP/SPO2 MONITORS IN PLACE. CALL LIGHT WITHIN REACH.
[2018-11-14] MEDS ORDERED: KETOROLAC 30 MG/1 ML ONE (06:16)
--- NOTE | 2018-11-14 06:27 | NUR ---
PT MEDICATED PER EMAR FOR PAIN. PT TOLERATED WELL. PT'S AOX4. RESPS EVEN AND UNLABORED.
[2018-11-14] MEDS ORDERED: KETOROLAC 30 MG/1 ML IM ONE (06:30)
--- NOTE | 2018-11-14 06:53 | NUR ---
received report from Ana María. pt upright on gurney awake & comfortable, responds approp to staff, NAD, comfort measures provided, call light within reach.
--- NOTE | 2018-11-14 06:54 | NUR ---
REPORT GIVEN TO BETH RICCI.
[2018-11-14 06:59] VITALS: BP 128/82
--- NOTE | 2018-11-14 07:00 | NUR ---
US at BS.
--- NOTE | 2018-11-14 08:04 | NUR ---
Patient given discharge instructions and Rx, they have confirmed that they understand the instructions. Patient ambulatory with steady gait.
== END 2018-11-14 08:06 | disposition home or self-care (01) ==
LOC: ED 07:02
DX: M79.662 Pain in left lower leg (principal); M1A.9XX0 Chronic gout, unspecified, without tophus (tophi); Z86.718 Personal history of other venous thrombosis and embolism; Z72.9 Problem related to lifestyle, unspecified; Z59.0 Homelessness
CPT/HCPCS: 93970; 96372; 99284; J1885

== ENCOUNTER 2019-01-27 15:13 | Emergency (ER) | payer MEDICAID ==
[~2019-01-27] VITALS: Ht 160 cm; Wt 104.7 kg
[2019-01-27 15:43] VITALS: BP 116/75
--- NOTE | 2019-01-27 15:45 | NUR ---
PAIN HAD CO OF BILAT LOWER LEG PAIN. PT STATES "ITS GOUT, RAN OUT OF INDOMETHECIN A FEW DAYS AGO AND CANT GET A DOCTOR APPOINTMENT". PT STATES LEGS ARE ALWAYS SWOLLEN. "PAIN HAS GOTTEN WORSE AND I CANNOT WALK". PT REQUESTING PAIN. MED. WAITING FOR MD ORDERS.
[2019-01-27] MEDS ORDERED: ALLO300T PO (15:48)
[2019-01-27] MEDS ORDERED: INDO25CA5 PO (15:48)
[2019-01-27] MEDS ORDERED: KETOROLAC 30 MG/1 ML IM ONE (16:00)
[2019-01-27] MEDS ORDERED: KETOROLAC 60 MG/2 ML ONE (16:06)
--- NOTE | 2019-01-27 16:08 | NUR ---
PT IN IN ULTRASOUND. WILL MEDICATE WHEN PT RETURNS.
--- NOTE | 2019-01-27 16:59 | NUR ---
MEDICATED FOR PIAN PER MD. PAIN 10/10 IN LOWER LEGS
--- NOTE | 2019-01-27 17:43 | NUR ---
Patient given discharge instructions and they have confirmed that they understand the instructions. Patient ambulatory with steady gait.
--- NOTE | 2019-01-27 17:48 | NUR ---
RN EDUCATED ABOUT PRESCRIPTIONS AND KEEPING FURTHER PCP APPOINTMENTS FOR PRESCRIPTIONS REFILLS. PT BECAME UPSET AND WALKED OUT TO DISCHARGE AREA "I TAKE CARE OF MYSELF AND I KEEP MY APPOINTMENTS" PATIENT DC.
== END 2019-01-27 17:45 | disposition home or self-care (01) ==
LOC: ED 17:40
DX: M1A.0620 Idiopathic chronic gout, left knee, without tophus (tophi) (principal); M1A.0610 Idiopathic chronic gout, right knee, without tophus (tophi); M79.662 Pain in left lower leg; G89.29 Other chronic pain; M79.661 Pain in right lower leg; F20.9 Schizophrenia, unspecified; K21.9 Gastro-esophageal reflux disease without esophagitis; I10 Essential (primary) hypertension; F31.9 Bipolar disorder, unspecified; Z86.718 Personal history of other venous thrombosis and embolism; Z87.891 Personal history of nicotine dependence
CPT/HCPCS: 93970; 96372; 99284; J1885

== ENCOUNTER 2019-10-02 13:29 | Emergency (ER) | payer MEDICAID ==
[~2019-10-02] VITALS: Ht 165.1 cm; Wt 117.0 kg
[~2019-10-02 13:29] MED LIST changes: +ALLO300T PO; +INDO25CA22 PO; +INDO50CA15 PO; -INDO50CA5 PO; +RIVA10TA2 PO
[2019-10-02 13:33] VITALS: BP 111/70
--- NOTE | 2019-10-02 14:17 | NUR ---
report received from rich carlisle.
--- NOTE | 2019-10-02 14:17 | NUR ---
us at bedside at this time.
[2019-10-02 14:21] LABS: BASOPHILS # (AUTO) 0.05 x10^3/uL (0-0.1); BASOPHILS % (AUTO) 1 % (0-1); EOSINOPHILS # (AUTO) 0.15 x10^3/uL (0-0.4); EOSINOPHILS % (AUTO) 2 % (1-7); LYMPHOCYTES # (AUTO) 1.83 x10^3/uL (1-3.4); LYMPHOCYTES % (AUTO) 22 % (22-44); MD NO; MEAN CORPUSCULAR HEMOGLOBIN 31.3 pg (27.5-34.5); MEAN CORPUSCULAR HGB CONC 33.8 g/dL (33.2-36.2); MEAN CORPUSCULAR VOLUME 92.6 fL (81-97); MEAN PLATELET VOLUME 7.6 fL (7.4-10.4); MONOCYTES # (AUTO) 0.81 x10^3/uL (0.2-0.8); MONOCYTES % (AUTO) 10 % (2-9); NEUTROPHILS # (AUTO) 5.39 x10^3/uL (1.8-6.8); NEUTROPHILS % (AUTO) 66 % (42-75); PLATELET COUNT 205 x10^3/uL (130-400); RED BLOOD COUNT 4.75 x10^6/uL (4.38-5.82); RED CELL DISTRIBUTION WIDTH 14.1 % (9.4-14.8)
[2019-10-02 14:28] LABS: ALBUMIN 3.4 g/dL (3.4-5.0); ANION GAP 7 mmol/L (5-15); CALCIUM 8.7 mg/dL (8.5-10.1); CHLORIDE 111 mmol/L (98-107); CREATININE 1.04 mg/dL (0.7-1.3)
--- NOTE | 2019-10-02 14:58 | NUR ---
loading unit operator powder charging at bedside to evaluate at this time.
[2019-10-02] MEDS ORDERED: HALOPERIDOL 5 MG/ML IM PRN (15:30)
[2019-10-02 15:33] LABS: SALICYLATE LEVEL < 1.7 mg/dL (2.8-20.0)
[2019-10-02 15:41] LABS: AMPHETAMINE SCREEN, URINE Negative (Negative); BARBITURATE SCREEN, URINE Negative (Negative); BENZODIAZEPINE SCREEN, URINE Positive (Negative); CANNABINOID SCREEN, URINE Negative (Negative); COCAINE SCREEN, URINE Negative (Negative); METHADONE SCREEN, URINE Negative (Negative); OPIATE SCREEN, URINE Negative (Negative)
--- NOTE | 2019-10-02 16:05 | NUR ---
MEDICATION ORDERED FROM PHARMACY AT THIS TIME.
--- NOTE | 2019-10-02 16:06 | NUR ---
THROUGHPUT RN: [facility], and [facility]. Contacted regarding pt insurance.
--- NOTE | 2019-10-02 16:48 | NUR ---
HOSPITAL BED REQUESTING AT THIS TIME.
--- NOTE | 2019-10-02 16:48 | NUR ---
PT MEDICATED PER EMAR. PT TOLERATED WELL.
--- NOTE | 2019-10-02 17:01 | NUR ---
MEAL TRAY ORDERED AT THIS TIME.
--- NOTE | 2019-10-02 18:00 | NUR ---
MEAL TRAY PROVIDED AT THIS TIME.
--- NOTE | 2019-10-02 18:42 | NUR ---
report given to ritu carlisle. all questions answered.
== END 2019-10-02 18:59 ==
LOC: ED 13:50
DX: R45.851 Suicidal ideations (principal); J44.9 Chronic obstructive pulmonary disease, unspecified; I10 Essential (primary) hypertension; F17.200 Nicotine dependence, unspecified, uncomplicated; K21.9 Gastro-esophageal reflux disease without esophagitis; F32.9 Major depressive disorder, single episode, unspecified
CPT/HCPCS: 36415; 80048; 80307; 82040; 83880; 84550; 85025; 93970; 99285

== ENCOUNTER 2019-10-22 06:47 | Emergency (ER) | payer MEDICAID ==
[~2019-10-22] VITALS: Ht 165.1 cm; Wt 111.2 kg
[2019-10-22 06:59] VITALS: BP 122/89
--- NOTE | 2019-10-22 07:11 | NUR ---
PAINT LABORATORY TECHNICIAN: PT TO ROOM FROM LOBBY
[2019-10-22] MEDS ORDERED: OXYcodone/APAP 5/325MG TABLET PO ONE (07:30)
[2019-10-22] MEDS ORDERED: KETOROLAC 30 MG/1 ML IM ONE (07:30)
--- NOTE | 2019-10-22 07:40 | NUR ---
TO RADIOLOGY FOR IMAGING
[2019-10-22] MEDS ORDERED: KETOROLAC 30 MG/1 ML ONE (07:55)
[2019-10-22] MEDS ORDERED: OXYcodone/APAP 5/325MG TABLET ONE (07:56)
--- NOTE | 2019-10-22 08:00 | NUR ---
MEDICATED PER EMAR FOR LEFT KNEE PAIN AT 10/10 ICE PACK APPLIED TO MODERATELY SWOLLEN LEG CMS INTACT DISTALLY
--- NOTE | 2019-10-22 08:33 | NUR ---
WITH REASSESSMENT PATIENT REPORT PAIN CONTROLLED TO 4/10 TOLERATING PO SOLIDS/FLUIDS PROVIDED WITH BUS PASS FOR TRANSPORT HOME & MUKUND WRAP FOR KNEE INFLAMMATION SUPPORT
--- NOTE | 2019-10-22 08:53 | NUR ---
pt. refused crutches.
--- NOTE | 2019-10-22 09:09 | NUR ---
FIRST CONTACT WITH PT. Patient/Caregiver given discharge instructions and they have confirmed that they understand the instructions. Patient ambulatory with steady gait AND KNEE IMMOBILIZER. NADN. PT LEFT WITH ALL PERSONAL BELONGINGS.
== END 2019-10-22 09:11 | disposition home or self-care (01) ==
LOC: ED 07:44
DX: S80.02XA Contusion of left knee, initial encounter (principal); I10 Essential (primary) hypertension; K21.9 Gastro-esophageal reflux disease without esophagitis; J44.9 Chronic obstructive pulmonary disease, unspecified; Z86.718 Personal history of other venous thrombosis and embolism; M10.9 Gout, unspecified; F17.200 Nicotine dependence, unspecified, uncomplicated; W19.XXXA Unspecified fall, initial encounter; Y93.89 Activity, other specified; Y92.89 Other specified places as the place of occurrence of the external cause; Y99.8 Other external cause status
CPT/HCPCS: 29505; 73564; 93971; 96372; 99284; J1885

== ENCOUNTER 2020-02-03 06:10 | Emergency (ER) | payer MEDICAID ==
[~2020-02-03] VITALS: Ht 165.1 cm; Wt 110.6 kg
[2020-02-03 06:12] VITALS: BP 127/88
--- NOTE | 2020-02-03 06:21 | NUR ---
PT REPORT HE FELL ASLEEP WITH EARBUD ON AND IT GOT STUCK INSIDE. PROVIDER AT BEDSIDE FOR EVAL.
--- NOTE | 2020-02-03 06:51 | NUR ---
REPORT GIVEN TO KATHE RICCI.
--- NOTE | 2020-02-03 06:53 | NUR ---
REPORT FROM MISAEL
--- NOTE | 2020-02-03 07:24 | NUR ---
US PENDING, PT RESTING
--- NOTE | 2020-02-03 08:06 | NUR ---
Patient/Caregiver given discharge instructions and they have confirmed that they understand the instructions. Patient ambulatory with steady gait.
== END 2020-02-03 08:14 | disposition home or self-care (01) ==
LOC: ED 07:20
DX: T16.2XXA Foreign body in left ear, initial encounter (principal); I80.02 Phlebitis and thrombophlebitis of superficial vessels of left lower extremity; R60.0 Localized edema; F17.210 Nicotine dependence, cigarettes, uncomplicated; X58.XXXA Exposure to other specified factors, initial encounter; Y93.89 Activity, other specified; Y92.89 Other specified places as the place of occurrence of the external cause; Y99.8 Other external cause status
CPT/HCPCS: 99284; 99406

== ENCOUNTER 2020-06-30 03:39 | Emergency (ER) | payer MEDICAID ==
[~2020-06-30] VITALS: Ht 177.8 cm; Wt 120.0 kg
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
--- NOTE | 2020-06-30 04:43 | NUR ---
report received from Leonela carlisle
[2020-06-30 04:51] LABS: BASOPHILS % (AUTO) 1 % (0-1); EOSINOPHILS % (AUTO) 2 % (1-7); LYMPHOCYTES % (AUTO) 40 % (22-44); MEAN CORPUSCULAR HEMOGLOBIN 32.1 pg (27.5-34.5); MEAN CORPUSCULAR HGB CONC 34.1 g/dL (33.2-36.2); MEAN PLATELET VOLUME 7.6 fL (7.4-10.4); MONOCYTES % (AUTO) 10 % (2-9); NEUTROPHILS % (AUTO) 47 % (42-75); PLATELET COUNT 193 x10^3/uL (130-400); RED BLOOD COUNT 5.05 x10^6/uL (4.38-5.82); RED CELL DISTRIBUTION WIDTH 13.6 % (9.4-14.8)
[2020-06-30 04:55] LABS: MD NO
[2020-06-30 05:00] LABS: AMPHETAMINE SCREEN, URINE Negative (Negative); BARBITURATE SCREEN, URINE Negative (Negative); BENZODIAZEPINE SCREEN, URINE Negative (Negative); CANNABINOID SCREEN, URINE Negative (Negative); COCAINE SCREEN, URINE Negative (Negative); METHADONE SCREEN, URINE Negative (Negative); OPIATE SCREEN, URINE Negative (Negative)
[2020-06-30 05:02] LABS: ALBUMIN 3.8 g/dL (3.4-5.0); ANION GAP 4 mmol/L (5-15); CALCIUM 8.7 mg/dL (8.5-10.1); CHLORIDE 115 mmol/L (98-107)
[2020-06-30 05:04] LABS: CREATININE 1.15 mg/dL (0.7-1.3)
[2020-06-30 05:19] LABS: SALICYLATE LEVEL < 1.7 mg/dL (2.8-20.0)
--- NOTE | 2020-06-30 06:25 | NUR ---
pt sleeping, no needs at this time
--- NOTE | 2020-06-30 07:04 | NUR ---
report given to sena carlisle
--- NOTE | 2020-06-30 07:06 | NUR ---
SBAR HAND-OFF REPORT RECEIVED FROM KEIRY MOSS. ASSUMING CARE OF PATIENT.
--- NOTE | 2020-06-30 08:00 | NUR ---
BREAKFAST AND JUICE SERVED TO PATIENT.
[2020-06-30 09:04] VITALS: BP 111/59
--- NOTE | 2020-06-30 12:19 | NUR ---
Breathylizer is now 0.071. Done at the request of FADUMO Jett, and Maliha notified.
--- NOTE | 2020-06-30 12:53 | NUR ---
PHARMACY REQUEST SLIP SENT TO PHARMACY FOR INVEGA PO.
[2020-06-30] MEDS ORDERED: PALIPERIDONE 1.5 MG TAB.ER.24 PO SCH (13:00)
[2020-06-30] MEDS ORDERED: PALIPERIDONE 3 MG TAB.ER.24 PO SCH (13:30)
--- NOTE | 2020-06-30 17:02 | NUR ---
SBAR TELEPHONE HAND-OFF REPORT GIVEN TO KEIRY JACKSON. PT READY TO GO TO HOSPITAL ROOM.
== END 2020-06-30 18:04 ==
LOC: ED 06:10
DX: R45.851 Suicidal ideations (principal); F10.129 Alcohol abuse with intoxication, unspecified; Y90.0 Blood alcohol level of less than 20 mg/100 ml; F17.210 Nicotine dependence, cigarettes, uncomplicated; Z72.9 Problem related to lifestyle, unspecified; K21.9 Gastro-esophageal reflux disease without esophagitis; I10 Essential (primary) hypertension; J44.9 Chronic obstructive pulmonary disease, unspecified; Z86.718 Personal history of other venous thrombosis and embolism; F20.9 Schizophrenia, unspecified; F32.9 Major depressive disorder, single episode, unspecified
CPT/HCPCS: 36415; 80048; 80299; 80307; 80320; 80329; 82040; 85025; 87426; 99285; 99406; G0480

== ENCOUNTER 2020-06-30 13:22 | Inpatient (IN) | payer MEDICAID ==
[~2020-06-30] VITALS: Ht 177.8 cm; Wt 103.9 kg
[2020-06-30] MEDS ORDERED: ONDANSETRON ODT 4 MG PO PRN (15:00)
[2020-06-30] MEDS ORDERED: POLYETHYLENE GLYCOL 17 GM PACKET PO PRN (15:00)
[2020-06-30] MEDS ORDERED: BISACODYL 10 MG SUPP PR PRN (15:00)
[2020-06-30] MEDS ORDERED: DOCUSATE 100 MG CAPSULE PO PRN (15:00)
[2020-06-30 18:01] VITALS: BP 125/77
[2020-06-30 18:58] LABS: MICROSCOPIC INDICATED
[2020-06-30 19:56] VITALS: BP 118/74
[2020-06-30] MEDS: ACETAMINOPHEN 325 MG TABLET PO PRN (21:00)
[2020-07-01 05:31] LABS: CHOL/HDL RATIO 4.5; FREE T4 (FREE THYROXINE) 0.92 ng/dL (0.76-1.46)
[2020-07-01 07:05] VITALS: BP 130/75
[2020-07-01] MEDS: ACAMPROSATE 333 MG TABLET.DR PO SCH ×3 (08:41→20:29)
[2020-07-01] MEDS ORDERED: HYDROXYZINE PAMOATE 50MG CAP PO PRN (16:00)
[2020-07-01] MEDS: PALIPERIDONE 3 MG TAB.ER.24 PO SCH (16:10)
[2020-07-01 19:50] VITALS: BP 132/84
[2020-07-02 08:00] VITALS: BP 110/73
[2020-07-02] MEDS: PALIPERIDONE 3 MG TAB.ER.24 PO SCH (09:52)
[2020-07-02] MEDS: ACAMPROSATE 333 MG TABLET.DR PO SCH ×3 (09:52→20:20)
[2020-07-03 07:00] VITALS: BP 127/87
[2020-07-03] MEDS: ACETAMINOPHEN 325 MG TABLET PO PRN (08:29)
[2020-07-03] MEDS: PALIPERIDONE 3 MG TAB.ER.24 PO SCH (08:29)
[2020-07-03] MEDS: ACAMPROSATE 333 MG TABLET.DR PO SCH ×3 (08:29→20:22)
[2020-07-03 19:27] VITALS: BP 122/82
[2020-07-04 07:36] VITALS: BP 113/76
[2020-07-04] MEDS: PALIPERIDONE 3 MG TAB.ER.24 PO SCH (09:08)
[2020-07-04] MEDS: ACAMPROSATE 333 MG TABLET.DR PO SCH ×3 (09:08→20:20)
[2020-07-04] MEDS ORDERED: PALI3TAB11 PO (18:01)
[2020-07-04] MEDS ORDERED: MELA5TAB14 PO (18:01)
[2020-07-04] MEDS ORDERED: ACAM333T7 PO (18:01)
[2020-07-04 19:58] VITALS: BP 126/74
[2020-07-04] MEDS ORDERED: MELATONIN 5 MG TABLET PO SCH (21:00)
[2020-07-05 07:40] VITALS: BP 123/84
[2020-07-05] MEDS: PALIPERIDONE 3 MG TAB.ER.24 PO SCH (09:00)
[2020-07-05] MEDS ORDERED: PALIPERIDONE PALMITATE 234 MG/1.5 ML IM ONE (09:00)
[2020-07-05] MEDS: ACAMPROSATE 333 MG TABLET.DR PO SCH (09:11)
== END 2020-07-05 14:32 | disposition home or self-care (01) | DRG 885 ==
LOC: 3E 17:33
PROVIDERS: ADMIT Psychiatry & Neurology Psychosomatic Medicine; ATTEND Psychiatry & Neurology Psychosomatic Medicine
DX: F20.0 Paranoid schizophrenia (principal); F33.2 Major depressive disorder, recurrent severe without psychotic features; R45.851 Suicidal ideations; F12.90 Cannabis use, unspecified, uncomplicated; G47.00 Insomnia, unspecified; H40.9 Unspecified glaucoma; H91.90 Unspecified hearing loss, unspecified ear; J44.9 Chronic obstructive pulmonary disease, unspecified; K21.9 Gastro-esophageal reflux disease without esophagitis; M10.9 Gout, unspecified; M19.90 Unspecified osteoarthritis, unspecified site; Z59.0 Homelessness; Z86.711 Personal history of pulmonary embolism
CPT/HCPCS: 36415; 71045; 80061; 81001; 82140; 84439; 84443; 93005; J2426